=== PATIENT | male | born 2000 | race African-American/Black ===

== ENCOUNTER 2024-06-30 15:03 | Emergency (ER) | payer OTHER ==
[~2024-06-30] VITALS: Ht 170.2 cm; Wt 69.1 kg
[2024-06-30 15:28] VITALS: TEMP 98.8
[2024-06-30] MEDS ORDERED: NS 1,000 ML IV ONE (17:15)
[2024-06-30 17:29] LABS: HEMATOCRIT 46.2 % (42.0-52.0); MEAN CELL VOLUME 84 fl (80.0-100.0); MEAN CORPUSCULAR HEMOGLOBIN 29 pg (27-31); MEAN CORPUSCULAR HGB CONC 35 g/dl (33.0-37.0); MEAN PLATELET VOLUME 13.3 fl (7.4-10.4); PLATELET COUNT 188 K/mm3 (130-400); REDCELL DISTRIBUTION WIDTH-CV 12.3 % (11.5-14.5)
[2024-06-30 18:11] LABS: BAND 1 % (0-10); EOSINOPHIL 4 % (0-4); LYMPHOCYTE 29 % (20.0-51.0); NEUTROPHILS 51 % (42.0-75.2); NUCLEATED RED BLOOD CELL 1 (0-6); PLATELET ESTIMATE NORMAL (NORMAL)
[2024-06-30 18:15] LABS: ALBUMIN 3.9 g/dL (3.5-5.0); BILIRUBIN,TOTAL 0.5 mg/dL (0.2-1.2); C-REACTIVE PROTEIN 0.02 mg/dL (0.00-0.50); CALCIUM 8.4 mg/dL (8.4-10.2); CREATININE, serum 1.18 mg/dL (0.72-1.25); POTASSIUM 3.9 mEq/L (3.5-4.5); TOTAL PROTEIN 6.7 g/dl (6.2-8.1)
[2024-06-30 18:50] VITALS: BP 126/90; PULSE 71
[2024-06-30] MEDS ORDERED: RISPERDAL 1M1 MG/TAB PO (18:56)
[2024-06-30] MEDS ORDERED: NORVASC 10MG10 MG PO (18:56)
[2024-06-30] MEDS ORDERED: COGENTIN 1MG1 MG/TAB PO (18:56)
[2024-06-30] MEDS ORDERED: MELATIN 3 MG-11 TAB PO (18:57)
[2024-06-30] MEDS ORDERED: CELEXA 20MG20 MG/TAB PO (18:57)
[2024-06-30] MEDS ORDERED: DESYREL 100MG100 MG PO (18:57)
== END 2024-06-30 18:50 | disposition home or self-care (01) ==
LOC: COL.ER 15:03
PROVIDERS: Nurse Practitioner
DX: R19.7 Diarrhea, unspecified (principal)
CPT/HCPCS: J7030